=== PATIENT | female | born 1960 | race Caucasian/White ===

== ENCOUNTER → 2016-12-16 | Outpatient (CLI) | payer OTHER ==
[~2016-12-16] MED LIST: CHOL200010 PO; CYAN500T13 PO; LEVO125T72 PO; RANI150T2 PO
[2016-12-16 13:50] LABS: THYROID STIMULATING HORMONE 0.682 uIu/ml (0.300-4.500)
== END | disposition home or self-care (01) ==
LOC: C.LABBFT 08:59
PROVIDERS: ATTEND Physician Assistant Medical
DX: E03.9 Hypothyroidism, unspecified (principal)

== ENCOUNTER → 2017-01-20 | Outpatient (CLI) | payer OTHER ==
[2017-01-20 17:42] LABS: HEMATOCRIT 44.7 % (37-47); MEAN CELL VOLUME 84.8 fL (80-100); MEAN CORPUSCULAR HEMOGLOBIN 27.9 pg (25-34); MEAN CORPUSCULAR HGB CONC 32.9 g/dl (32-36); MEAN PLATELET VOLUME 9.5 fL (7.4-10.4); PLATELET COUNT 300 K/uL (130-400); RED BLOOD COUNT 5.27 M/uL (4.2-5.4); WHITE BLOOD COUNT 5.52 K/uL (4.8-10.8)
[2017-01-20 18:34] LABS: AST/SGOT 20 U/L (15-37); BLOOD UREA NITROGEN 14 mg/dl (7-18); BUN/CREATININE RATIO 15.7 (10-20); CALCIUM 9.4 mg/dl (8.5-10.1); CARBON DIOXIDE 26 mmol/L (21-32); CHLORIDE 105 mmol/L (98-107); GLUCOSE 93 mg/dl (70-99); POTASSIUM 3.3 mmol/L (3.5-5.1); SODIUM 140 mmol/L (136-145)
[2017-01-20 18:37] LABS: ALB/GLOB RATIO 0.9 (0.9-2); ALKALINE PHOSPHATASE 97 U/L (45-117); ALT/SGPT 34 U/L (12-78); CHOLESTEROL 233 mg/dl (0-200); HDL CHOLESTEROL 77 mg/dl; LDL CHOLESTEROL CALCULATED 136 mg/dl; TRIGLYCERIDES 100 mg/dl (0-150); VERY LOW DENSITY LIPOPROT CALC 20 mg/dl
== END | disposition home or self-care (01) ==
LOC: C.LABBFT 12:07
PROVIDERS: ATTEND Physician Assistant Medical
DX: E78.00 Pure hypercholesterolemia, unspecified (principal); E55.9 Vitamin D deficiency, unspecified; K21.9 Gastro-esophageal reflux disease without esophagitis

== ENCOUNTER → 2017-05-15 | Outpatient (CLI) | payer OTHER ==
--- NOTE | 2017-05-16 13:53 | MAMMOGRAPHY REPORT ---
BILATERAL DIGITAL SCREENING MAMMOGRAM TOMOSYNTHESIS WITH CAD: 05/15/2017 CLINICAL HISTORY: Routine screening. Patient has no complaints. TECHNIQUE: Breast tomosynthesis in addition to standard 2D mammography was performed. Current study was also evaluated with a Computer Aided Detection (CAD) system. COMPARISON: Comparison is made to exams dated: 05/13/2016 mammogram, 05/08/2015 mammogram, 4 mammogram, 05/03/2013 mammogram - [facility], 03/03/2007, and 03/04/2003 mammogram - [facility]. BREAST COMPOSITION: The tissue of both breasts is heterogeneously dense, which may obscure small mas ses. FINDINGS: No suspicious masses, calcifications, or areas of architectural distortion are noted in ei ther breast. There has been no significant interval change compared to prior exams. IMPRESSION: ACR BI-RADS CATEGORY 1: NEGATIVE There is no mammographic evidence of malignancy. A 1 year screening mammogram is recommended. The pa tient will receive written notification of the results. Approximately 10% of breast cancers are not detected with mammography. A negative mammographic report should not delay biopsy if a clinically suggestive mass is present. Anay Bella M.D. /:05/15/2017 16:22:39 Eyeglass Fitter: Florencia DE LEON(R)(M), [facility] letter sent: Normal 1/2 BI-RADS Code: ACR BI-RADS Category 1: Negative
== END | disposition home or self-care (01) ==
LOC: C.MAMM 16:08
PROVIDERS: ATTEND Internal Medicine
DX: Z12.31 Encounter for screening mammogram for malignant neoplasm of breast (principal)

== ENCOUNTER → 2017-08-12 | Outpatient (CLI) | payer OTHER ==
[2017-08-12 17:49] LABS: BASO % 0.2 %; BASO ABS # 0.01 K/uL (0-0.2); EOS % 1.3 %; EOS ABS # 0.08 K/uL (0-0.5); HEMATOCRIT 43.3 % (37-47); HEMOGLOBIN 14.4 g/dL (12.0-16.0); IG# 0.01 K/uL (0.00-0.02); LYMPH % 28.7 %; LYMPH ABS # 1.78 K/uL (1.2-3.4); MEAN CELL VOLUME 84.7 fL (80-100); MEAN CORPUSCULAR HEMOGLOBIN 28.2 pg (25-34); MEAN CORPUSCULAR HGB CONC 33.3 g/dl (32-36); MEAN PLATELET VOLUME 9.7 fL (7.4-10.4); MONO ABS # 0.56 K/uL (0.11-0.59); NEUT % 60.6 %; NEUT ABS # 3.77 K/uL (1.4-6.5); PLATELET COUNT 291 K/uL (130-400); RED CELL DISTRIBUTION WIDTH CV 14.3 % (11.5-14.5); RED CELL DISTRIBUTION WIDTH SD 44.4 fL (36.4-46.3); WHITE BLOOD COUNT 6.21 K/uL (4.8-10.8)
== END | disposition home or self-care (01) ==
LOC: C.LABBFT 12:00
PROVIDERS: ATTEND Physician Assistant Medical
DX: K92.1 Melena (principal)

== ENCOUNTER → 2017-08-13 | Outpatient (CLI) | payer OTHER | END | disposition home or self-care (01) | LOC: C.LABSPEC 07:04 | PROVIDERS: ATTEND Physician Assistant Medical | DX: K92.1 Melena (principal) ==

== ENCOUNTER → 2017-08-28 | Outpatient (CLI) | payer OTHER | END | disposition home or self-care (01) | LOC: C.MAMM 10:44 | PROVIDERS: ATTEND Internal Medicine | DX: M85.88 Other specified disorders of bone density and structure, other site (principal) ==